=== PATIENT | female | born 1965 | race African-American/Black ===

== ENCOUNTER 2020-11-14 18:25 | Emergency (ER) | payer SELFPAY ==
[2020-11-14] MEDS ORDERED: OCTYL 2-CYANOACRYLATE 1 EACH TP ONE ×2 (18:35→18:36)
[2020-11-14] MEDS ORDERED: TETANUS/DIPHTHERIA TOXOID [ADULT] 0.5 ML VIAL IM ONE (18:46)
[2020-11-14] MEDS ORDERED: ACETAMINOPHEN 500 MG TABLET ONE (18:46)
== END 2020-11-14 18:59 | disposition home or self-care (01) ==
LOC: EDH 18:25
DX: S61.512A Laceration without foreign body of left wrist, initial encounter (principal); Z91.012 Allergy to eggs; W26.0XXA Contact with knife, initial encounter; Y93.89 Activity, other specified; Y92.89 Other specified places as the place of occurrence of the external cause; Y99.8 Other external cause status
CPT/HCPCS: 12002; 90471; 90714